=== PATIENT | male | born 1960 | race Caucasian/White ===

== ENCOUNTER 2021-10-30 20:57 | Inpatient (IN) | payer OTHER, MEDICAID ==
[~2021-10-30] VITALS: Ht 170.2 cm; Wt 81.6 kg
[2021-10-30 22:17] LABS: BASOPHILS % 0.2 % (0.0-2.0); EOSINOPHILS % 1.4 % (0.0-5.0); HEMATOCRIT. 38.7 % (42.0-52.0); HEMOGLOBIN. 12.3 g/dL (14.0-18.0); LYMPHOCYTES % 19.9 % (20.0-50.0); MEAN CORPUSCULAR HEMOGLOBIN 25.7 pg (28.0-32.0); MEAN CORPUSCULAR VOLUME 80.7 fL (80.0-94.0); MEAN PLATELET VOLUME 9.1 fl (7.4-10.4); MONOCYTES % 9.3 % (2.0-8.0); NEUTROPHILS % 69.2 % (40.0-76.0); PLATELET 168 x1000/uL (130-400); RED BLOOD CELL COUNT 4.79 mill/uL (4.7-6.1)
[2021-10-30 22:25] LABS: CHLORIDE 104 mEq/L (98-107)
[2021-10-30 23:42] LABS: CLARITY URINE CLOUDY (CLEAR); COLOR URINE YELLOW (YELLOW); KETONES URINE TRACE (NEGATIVE); LEUKOCYTE ESTERASE URINE 1+ (NEGATIVE); NITRITE URINE NEGATIVE (NEGATIVE); OCCULT BLOOD URINE TRACE (NEGATIVE); PH URINE 6.5 (4.5-8.0); PROTEIN URINE 2+ (NEGATIVE); SPECIFIC GRAVITY URINE 1.031 (1.005-1.030)
[2021-10-31] MEDS ORDERED: MORPHINE SULFATE 4 MG/ML CPJ (NOT FOR IM USE) IV ONE
[2021-10-31] MEDS ORDERED: IOHEXOL-350 100 ML BOTTLE ONE (01:39)
[2021-10-31] MEDS ORDERED: CEFTRIAXONE 1 G PREMIX 50 ML IV SCH ×2 (03:15→09:00)
[2021-10-31] MEDS ORDERED: GUAIFENESIN 200MG/10ML SUGAR FREE UDC PO PRN (08:45)
[2021-10-31] MEDS ORDERED: ONDANSETRON HCL 4MG/2ML INJ IV PRN (08:45)
[2021-10-31] MEDS ORDERED: DEXTROSE 50% WATER 50ML SYRINGE IV PRN (08:45)
[2021-10-31] MEDS ORDERED: LORAZEPAM 2MG/ML CPJ IV PRN (08:45)
[2021-10-31] MEDS ORDERED: DIPHENHYDRAMINE 50MG/ML VIAL IV PRN (08:45)
[2021-10-31] MEDS ORDERED: DOCUSATE SODIUM 100MG CAPSULE PO PRN (08:45)
[2021-10-31] MEDS ORDERED: HYDRALAZINE 20MG/ML VIAL IV PRN (08:45)
[2021-10-31] MEDS ORDERED: ACETAMINOPHEN 325MG TABLET PO PRN (08:45)
[2021-10-31] MEDS ORDERED: MAGNESIUM/ALUMINUM HYDROXIDE/SIMETHICONE 30ML UDC PO PRN (08:45)
[2021-10-31] MEDS ORDERED: CLONIDINE 0.1MG TABLET PO PRN (08:45)
[2021-10-31] MEDS ORDERED: IPRATROPIUM/ALBUTEROL 0.5-3(2.5)MG/3ML NEB HHN PRN (08:45)
[2021-10-31] MEDS ORDERED: INSU100C6 SQ (09:27)
[2021-10-31] MEDS ORDERED: LEVO50TA8 PO (09:27)
[2021-10-31] MEDS ORDERED: CEPH500T PO (09:27)
[2021-10-31] MEDS ORDERED: GLIP5TAB12 PO (09:27)
[2021-10-31] MEDS ORDERED: GABA-532 PO (09:27)
[2021-10-31] MEDS ORDERED: METF-874 PO (09:27)
[2021-10-31] MEDS: ENOXAPARIN 40MG/0.4ML SYR SUBCUT SCH (09:37)
[2021-10-31] MEDS: SODIUM CHLORIDE 0.45% 1,000 ML IV SCH (09:37)
[2021-10-31 09:47] VITALS: BP 153/83
[2021-10-31 12:00] VITALS: BP 153/82
[2021-10-31] MEDS: BLOOD SUGAR DIAGNOSTIC STRIP TEST SCH ×3 (12:55→21:49)
[2021-10-31] MEDS: INSULIN LISPRO 100 UNITS/ML SUBCUT SCH ×3 (12:56→21:51)
[2021-10-31] MEDS: SODIUM CHLORIDE 0.9% INJ 3ML FLUSH IVF SCH ×2 (12:57→21:11)
[2021-10-31] MEDS: AMLODIPINE 5MG TABLET PO SCH (15:03)
[2021-10-31 16:00] VITALS: BP 126/58
[2021-10-31] MEDS ORDERED: INFLUENZA VACCINE 05/PF 0.5 ML SYRINGE IM ONE (16:00)
[2021-10-31] MEDS ORDERED: PNEUMOCOCCAL 23-VAL P-SAC VAC 0.5 ML IM ONE (16:00)
[2021-10-31 17:49] LABS: CREATINE KINASE 61 IU/L (39-308)
[2021-10-31 17:55] LABS: CREATINE KINASE MB FRACTION 1.1 ng/mL (0.5-3.6)
[2021-10-31] MEDS: MORPHINE SULFATE 2 MG/ML CPJ (NOT FOR IM USE) IV PRN (18:18)
[2021-10-31 20:00] VITALS: BP 138/80
[2021-10-31] MEDS: ATORVASTATIN CALCIUM 40MG TABLET PO SCH (21:10)
[2021-10-31] MEDS ORDERED: NALOXONE HCL 0.4MG/ML VIAL IV PRN (22:00)
[2021-10-31 23:26] LABS: CREATINE KINASE 61 IU/L (39-308)
[2021-10-31 23:27] LABS: CREATINE KINASE MB FRACTION < 1.0 ng/mL (0.5-3.6)
[2021-10-31] MEDS: CEFTRIAXONE 1,000 MG in DEXTROSE 5% WATER 50 ML IV SCH (23:46)
[2021-11-01] VITALS: BP 109/59
[2021-11-01] MEDS: SODIUM CHLORIDE 0.45% 1,000 ML IV SCH ×2 (01:43→17:10)
[2021-11-01 04:00] VITALS: BP 111/70
[2021-11-01] MEDS: BLOOD SUGAR DIAGNOSTIC STRIP TEST SCH ×4 (06:26→21:05)
[2021-11-01 06:28] LABS: BASOPHILS % 0.2 % (0.0-2.0); EOSINOPHILS % 1.4 % (0.0-5.0); HEMATOCRIT. 35.4 % (42.0-52.0); HEMOGLOBIN. 11.7 g/dL (14.0-18.0); LYMPHOCYTES % 23.9 % (20.0-50.0); MEAN CORPUSCULAR HEMOGLOBIN 26.5 pg (28.0-32.0); MEAN PLATELET VOLUME 9.6 fl (7.4-10.4); MONOCYTES % 11.3 % (2.0-8.0); NEUTROPHILS % 63.2 % (40.0-76.0); PLATELET 164 x1000/uL (130-400); RED BLOOD CELL COUNT 4.43 mill/uL (4.7-6.1); RED CELL DISTRIBUTION WIDTH 15.7 % (11.6-14.6)
[2021-11-01 06:36] LABS: CHLORIDE 103 mEq/L (98-107)
[2021-11-01] MEDS: SODIUM CHLORIDE 0.9% INJ 3ML FLUSH IVF SCH ×3 (06:49→21:04)
[2021-11-01] MEDS: INSULIN LISPRO 100 UNITS/ML SUBCUT SCH ×4 (06:50→21:07)
[2021-11-01 08:15] VITALS: BP 126/71
[2021-11-01] MEDS: ENOXAPARIN 40MG/0.4ML SYR SUBCUT SCH (08:40)
[2021-11-01] MEDS: ASPIRIN 81MG TABLET PO SCH (08:40)
[2021-11-01] MEDS: AMLODIPINE 5MG TABLET PO SCH (08:40)
[2021-11-01 12:29] VITALS: BP 130/68
[2021-11-01 16:19] VITALS: BP 131/86
[2021-11-01 20:00] VITALS: BP 120/66
[2021-11-01] MEDS: CEFTRIAXONE 1,000 MG in DEXTROSE 5% WATER 50 ML IV SCH (21:04)
[2021-11-01] MEDS: ATORVASTATIN CALCIUM 40MG TABLET PO SCH (21:05)
[2021-11-01] MEDS: METOPROLOL TARTRATE 25MG TABLET PO SCH (21:05)
[2021-11-02] VITALS: BP_SYST 122; BP_SYST 126; BP_DIAS 59; BP_DIAS 65
[2021-11-02] MEDS: MORPHINE SULFATE 2 MG/ML CPJ (NOT FOR IM USE) IV PRN ×2 (03:18→21:33)
[2021-11-02 04:00] VITALS: BP 136/65
[2021-11-02] MEDS: SODIUM CHLORIDE 0.9% INJ 3ML FLUSH IVF SCH ×2 (05:37→21:31)
[2021-11-02] MEDS: BLOOD SUGAR DIAGNOSTIC STRIP TEST SCH ×4 (06:14→21:31)
[2021-11-02 06:39] LABS: BASOPHILS % 0.3 % (0.0-2.0); EOSINOPHILS % 1.7 % (0.0-5.0); HEMATOCRIT. 36.3 % (42.0-52.0); HEMOGLOBIN. 11.9 g/dL (14.0-18.0); LYMPHOCYTES % 35.3 % (20.0-50.0); MEAN CORPUSCULAR HEMOGLOBIN 26.5 pg (28.0-32.0); MEAN CORPUSCULAR VOLUME 80.7 fL (80.0-94.0); MEAN PLATELET VOLUME 9.4 fl (7.4-10.4); MONOCYTES % 12.6 % (2.0-8.0); NEUTROPHILS % 50.1 % (40.0-76.0); PLATELET 174 x1000/uL (130-400)
[2021-11-02] MEDS: INSULIN LISPRO 100 UNITS/ML SUBCUT SCH ×4 (06:46→21:46)
[2021-11-02 07:22] LABS: CHLORIDE 104 mEq/L (98-107)
[2021-11-02 08:00] VITALS: BP 137/68
[2021-11-02] MEDS ORDERED: NITROGLYCERIN SPRAY/4.9GM CAN TL ONE (08:00)
[2021-11-02] MEDS: ASPIRIN 81MG TABLET PO SCH (09:06)
[2021-11-02] MEDS: METOPROLOL TARTRATE 25MG TABLET PO SCH ×2 (09:06→21:31)
[2021-11-02] MEDS: AMLODIPINE 5MG TABLET PO SCH (09:07)
[2021-11-02] MEDS: ENOXAPARIN 40MG/0.4ML SYR SUBCUT SCH (09:08)
[2021-11-02] MEDS ORDERED: METOPROLOL TARTRATE 5MG/5ML VIAL IV ONE ×2 (11:28→11:45)
[2021-11-02 12:00] VITALS: BP 124/68
[2021-11-02] MEDS: SODIUM CHLORIDE 0.45% 1,000 ML IV SCH (13:25)
[2021-11-02] MEDS ORDERED: IOHEXOL-350 100 ML BOTTLE ONE (15:11)
[2021-11-02 16:00] VITALS: BP 126/66
[2021-11-02] MEDS: HYDROCODONE/ACETAMINOPHEN 5/325MG TABLET PO PRN (17:13)
[2021-11-02 20:00] VITALS: BP 126/59
[2021-11-02] MEDS: ATORVASTATIN CALCIUM 40MG TABLET PO SCH (21:30)
[2021-11-02] MEDS: CEFTRIAXONE 1,000 MG in DEXTROSE 5% WATER 50 ML IV SCH (21:32)
[2021-11-03] VITALS: BP 118/70
[2021-11-03 04:00] VITALS: BP 136/77
[2021-11-03] MEDS: SODIUM CHLORIDE 0.45% 1,000 ML IV SCH ×2 (04:13→22:06)
[2021-11-03] MEDS: SODIUM CHLORIDE 0.9% INJ 3ML FLUSH IVF SCH ×3 (05:31→22:05)
[2021-11-03] MEDS: BLOOD SUGAR DIAGNOSTIC STRIP TEST SCH ×4 (06:15→21:00)
[2021-11-03] MEDS: INSULIN LISPRO 100 UNITS/ML SUBCUT SCH ×4 (06:30→22:12)
[2021-11-03 08:00] VITALS: BP 129/69
[2021-11-03] MEDS: AMLODIPINE 5MG TABLET PO SCH (08:07)
[2021-11-03] MEDS: METOPROLOL TARTRATE 25MG TABLET PO SCH ×2 (08:08→22:05)
[2021-11-03 12:00] VITALS: BP 112/62
[2021-11-03 16:00] VITALS: BP 120/53
[2021-11-03 20:00] VITALS: BP 116/63
[2021-11-03] MEDS: MORPHINE SULFATE 2 MG/ML CPJ (NOT FOR IM USE) IV PRN (21:59)
[2021-11-03] MEDS: CEFTRIAXONE 1,000 MG in DEXTROSE 5% WATER 50 ML IV SCH (22:04)
[2021-11-03] MEDS: ATORVASTATIN CALCIUM 40MG TABLET PO SCH (22:05)
[2021-11-04] VITALS (10 sets, daily range): BP systolic 98–139; BP diastolic 55–79
[2021-11-04] MEDS: MORPHINE SULFATE 2 MG/ML CPJ (NOT FOR IM USE) IV PRN ×2 (05:54→21:28)
[2021-11-04] MEDS: SODIUM CHLORIDE 0.9% INJ 3ML FLUSH IVF SCH ×3 (05:54→21:04)
[2021-11-04] MEDS: SODIUM CHLORIDE 0.45% 1,000 ML IV SCH (06:01)
[2021-11-04] MEDS: BLOOD SUGAR DIAGNOSTIC STRIP TEST SCH ×4 (06:16→20:57)
[2021-11-04] MEDS: INSULIN LISPRO 100 UNITS/ML SUBCUT SCH ×4 (06:36→21:03)
[2021-11-04] MEDS ORDERED: NITROGLYCERIN 50MCG/ML 10ML VIAL (CATH LAB) IV ONE (07:41)
[2021-11-04] MEDS ORDERED: HEPARIN SODIUM 1,000 UNIT/1ML VIAL IV ONE (07:41)
[2021-11-04] MEDS ORDERED: NICARDIPINE 100MCG/ML 10ML VIAL (CATH LAB) IV ONE (07:41)
[2021-11-04] MEDS: AMLODIPINE 5MG TABLET PO SCH (09:00)
[2021-11-04] MEDS: METOPROLOL TARTRATE 25MG TABLET PO SCH ×2 (09:00→21:03)
[2021-11-04] MEDS ORDERED: VERAPAMIL HCL 2.5 MG/1 ML 2ML VIAL IV ONE (11:04)
[2021-11-04] MEDS ORDERED: LIDOCAINE HCL 1% 10 MG/ML 10ML VIAL ONE (11:04)
[2021-11-04] MEDS ORDERED: IODIXANOL 320MG/ML 100 ML BOTTLE IV ONE (11:04)
[2021-11-04] MEDS ORDERED: FENTANYL CITRATE/PF 50MCG/ML 2ML VIAL ONE (11:47)
[2021-11-04] MEDS ORDERED: MIDAZOLAM HCL 2 MG/2 ML VIAL ONE (11:48)
[2021-11-04] MEDS ORDERED: IOHEXOL-300 100 ML BOTTLE ONE (12:05)
[2021-11-04] MEDS ORDERED: CLOPIDOGREL 75MG TABLET ONE (12:19)
[2021-11-04] MEDS ORDERED: ASPIRIN 325MG TABLET ONE (12:20)
[2021-11-04] MEDS ORDERED: SODIUM CHLORIDE 0.45% 1,000 ML IV SCH (13:15)
[2021-11-04] MEDS ORDERED: ATROPINE SULFATE 1MG/10ML SYR IV PRN (13:15)
[2021-11-04] MEDS ORDERED: ACETAMINOPHEN 325MG TABLET PO PRN (13:15)
[2021-11-04] MEDS ORDERED: SODIUM CHLORIDE 0.45% 250 ML IV NR (13:45)
[2021-11-04] MEDS: HYDROCODONE/ACETAMINOPHEN 5/325MG TABLET PO PRN (15:08)
[2021-11-04] MEDS: ATORVASTATIN CALCIUM 40MG TABLET PO SCH (21:04)
[2021-11-04] MEDS: CEFTRIAXONE 1,000 MG in DEXTROSE 5% WATER 50 ML IV SCH (22:19)
[2021-11-05] VITALS (7 sets, daily range): BP systolic 126–150; BP diastolic 62–79
[2021-11-05] MEDS: SODIUM CHLORIDE 0.9% INJ 3ML FLUSH IVF SCH (06:16)
[2021-11-05] MEDS: SODIUM CHLORIDE 0.45% 1,000 ML IV SCH (06:23)
[2021-11-05] MEDS: BLOOD SUGAR DIAGNOSTIC STRIP TEST SCH (06:25)
[2021-11-05 07:35] LABS: BASOPHILS % 0.1 % (0.0-2.0); EOSINOPHILS % 0.9 % (0.0-5.0); HEMATOCRIT. 36.3 % (42.0-52.0); HEMOGLOBIN. 11.9 g/dL (14.0-18.0); LYMPHOCYTES % 21.4 % (20.0-50.0); MEAN CORPUSCULAR VOLUME 79.6 fL (80.0-94.0); MEAN PLATELET VOLUME 8.9 fl (7.4-10.4); MONOCYTES % 8.8 % (2.0-8.0); NEUTROPHILS % 68.8 % (40.0-76.0); PLATELET 189 x1000/uL (130-400); RED BLOOD CELL COUNT 4.56 mill/uL (4.7-6.1); RED CELL DISTRIBUTION WIDTH 15.7 % (11.6-14.6)
[2021-11-05 08:40] LABS: CHLORIDE 103 mEq/L (98-107)
[2021-11-05] MEDS: INSULIN LISPRO 100 UNITS/ML SUBCUT SCH (08:44)
[2021-11-05] MEDS: METOPROLOL TARTRATE 25MG TABLET PO SCH (08:44)
[2021-11-05] MEDS ORDERED: ASPIRIN 81MG TABLET PO SCH (09:00)
[2021-11-05] MEDS ORDERED: LOSARTAN POTASSIUM 25 MG TABLET PO SCH (09:00)
[2021-11-05] MEDS ORDERED: CLOPIDOGREL 75MG TABLET PO SCH (09:00)
== END 2021-11-05 13:53 | disposition home or self-care (01) | DRG 246 ==
LOC: ER 20:57 → MICUSO 10-31 03:07 → 8WST 10-31 03:07 → UNDOADMIN 10-31 03:07 → 3WST 11-04 13:10
PROVIDERS: ADMIT Internal Medicine; ATTEND Internal Medicine
PROC: 4A10X4Z Monitoring of Central Nervous Electrical Activity, External Approach (ICD-10-PCS; 2021-11-03)
PROC: 027034Z Dilation of Coronary Artery, One Artery with Drug-eluting Intraluminal Device, Percutaneous Approach (ICD-10-PCS; principal; 2021-11-04)
PROC: 4A023N7 Measurement of Cardiac Sampling and Pressure, Left Heart, Percutaneous Approach (ICD-10-PCS; 2021-11-04)
PROC: B211YZZ Fluoroscopy of Multiple Coronary Arteries using Other Contrast (ICD-10-PCS; 2021-11-04)
DX: I25.110 Atherosclerotic heart disease of native coronary artery with unstable angina pectoris (principal); G93.41 Metabolic encephalopathy; I50.32 Chronic diastolic (congestive) heart failure; M47.12 Other spondylosis with myelopathy, cervical region; A30.9 Leprosy, unspecified; M50.023 Cervical disc disorder at C6-C7 level with myelopathy; G95.89 Other specified diseases of spinal cord; N39.0 Urinary tract infection, site not specified; G90.8 Other disorders of autonomic nervous system; E11.9 Type 2 diabetes mellitus without complications; E78.00 Pure hypercholesterolemia, unspecified; E78.5 Hyperlipidemia, unspecified; I11.0 Hypertensive heart disease with heart failure; M48.061 Spinal stenosis, lumbar region without neurogenic claudication; Z20.822 Contact with and (suspected) exposure to COVID-19; M48.02 Spinal stenosis, cervical region; I65.21 Occlusion and stenosis of right carotid artery; M19.011 Primary osteoarthritis, right shoulder; R26.89 Other abnormalities of gait and mobility; Z85.51 Personal history of malignant neoplasm of bladder; Z79.84 Long term (current) use of oral hypoglycemic drugs; Z79.4 Long term (current) use of insulin; Z79.899 Other long term (current) drug therapy
CPT/HCPCS: 36415; 70496; 70498; 71045; 71275; 72141; 73030; 75571; 80048; 80053; 81003; 82550; 82553; 82962; 83880; 84443; 84484; 85025; 85347; 87077; 87186; 87426; 90686; 90732; 92928; 93005; 93306; 93458; 93970; 95816; 99285; C1769; C1874; C1887; C1893; J0696; J1644; J1650; J1815; J2250; J2270; J3010; J3490; J7060; Q9967; C1725